=== PATIENT | female | born 2000 | race Caucasian/White ===

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

== ENCOUNTER 2021-05-04 16:23 | Emergency (ER) | payer BC, MEDICAID ==
[2021-05-04] MEDS ORDERED: Sodium Chloride 0.9% 1,000 ML IV ONE ×2 (16:37→17:43)
--- NOTE | 2021-05-04 16:38 | PCM.EKG ---
#1 Interpretation EKG Date: 05/04/21 Time: 16:32 Rhythm: Other (sinus tachy) Rate (Beats/Min): 140 ST-T: Normal
--- NOTE | 2021-05-04 17:14 | CT ---
INDICATION: New onset seizure none TECHNIQUE: CT head without contrast. COMPARISON: None FINDINGS: CSF spaces: Within normal limits for age. Brain parenchyma: The best-white differentiation is normal. No sign of mass, hemorrhage, or midline shift. Skull base and calvarium: Mild mucosal thickening involving the left maxillary sinus floor. The visualized orbits are grossly unremarkable. No skull fractures. IMPRESSION: Unremarkable noncontrast head CT. Please note that all CT scans at this facility use dose modulation, iterative reconstruction, and/or weight-based dosing when appropriate to reduce radiation dose to as low as reasonably achievable. Dictated by Ethan Rodarte MD @ 05/04/2021 5:12:[address] Ethan Rodarte @ May 04 2021 5:12PM
[2021-05-04 17:20] LABS: BLOOD UREA NITROGEN,BUN 7 mg/dL (7.0-18.0); CARBON DIOXIDE,CO2 17.9 mmol/L (21.0-32.0); CHLORIDE,CL 103 mmol/L (98-107); GLUCOSE RANDOM 120 mg/dL (74-106); POTASSIUM,K 4.1 mmol/L (3.5-5.1); SODIUM,NA 137 mmol/L (136-145)
[2021-05-04] MEDS ORDERED: Iopamidol 755 MG/ML 500 ML Multipack Bottle IVPUSH STA (19:09)
--- NOTE | 2021-05-04 19:20 | CR ---
For Patients: As a result of the Century Cures Act, medical imaging exams and procedure reports are released immediately into your electronic medical record. You may view this report before your referring provider. If you have questions, please contact your health care provider. INDICATION: syncope TECHNIQUE: Chest 1 view. COMPARISON: 08/30/19 FINDINGS: Cardiovascular and mediastinum: Heart size and vasculature are normal in caliber and appearance. Mediastinum is within normal limits. Lungs and pleural space: Lungs are clear. No sign of infiltrate or mass. No sign of pleural effusion. No pneumothorax. Bones and soft tissues: No significant findings. IMPRESSION: Unremarkable chest. Dictated by: Ethan Rodarte MD @ 05/04/2021 19:19:09 (Electronically Signed)
--- NOTE | 2021-05-04 20:03 | CT ---
INDICATION: Tachycardia, syncope and right heart strain TECHNIQUE: CT chest PE was acquired with 100 cc Isovue 370 intravenous contrast. COMPARISON: None. FINDINGS: Heart and vasculature: Contrast opacification of the pulmonary arterial tree is adequate. No sign of pulmonary embolism. Heart size is normal. Thoracic aorta and pulmonary artery are normal in caliber. Lungs and pleural: No suspicious nodules or infiltrates. No pleural effusions, pleural thickening, or pneumothorax. Lymph nodes/mediastinum: No mediastinal, hilar, or axillary adenopathy. Chest wall: No masses. Upper abdomen: Normal. Bones: Unremarkable for age. IMPRESSION: Unremarkable chest CTA. No evidence of acute pulmonary embolus. Please note that all CT scans at this facility use dose modulation, iterative reconstruction, and/or weight-based dosing when appropriate to reduce radiation dose to as low as reasonably achievable. Dictated by Reji Monroy MD @ 05/04/2021 8:02:[address] Reji Monroy @ May 04 2021 8:02PM
--- NOTE | 2021-05-04 20:21 | EDM.PDOC ---
ED HPI GENERAL MEDICAL PROBLEM - General Chief Complaint: Cardiovascular Problem Stated Complaint: SIZURE Time Seen by Provider: 05/04/21 16:37 Source of Information: Reports: Patient History Limitations: Reports: No Limitations - History of Present Illness INITIAL COMMENTS - FREE TEXT/NARRATIVE: HISTORY AND PHYSICAL: History of present illness: Patient is a 20-year-old female who presents emergency room today via EMS with concern of possible seizure-like activity. According to EMS, patient's sister was talking to patient when she began mumbling and slumped back into the couch and had a few fasciculations that the sister thought was possible seizure-like activity. Patient states that she feels completely per herself at this time but states that earlier today, she was feeling "shaky "and states that she has not eaten properly today and thought this was associated with it. Patient states that she remembers talking to her sister but then does not have any recollection of the events. Patient states that she has never had a seizure before. Patient states she has a history of bipolar disorder but denies any other health history. Patient has no stated complaints at this time. Patient denies fever, chills, chest pain, shortness of breath, or cough. Denies headache, neck stiff ness, change in vision. Denies nausea, vomiting, abdominal pain, diarrhea, constipation, or dysuria. Has not noted any blood in urine or stool. Patient has been eating and drinking appropriately. Review of systems: As per history of present illness and below otherwise all systems reviewed and negative. Past medical history: As per history of present illness and as reviewed below otherwise noncontributory. Surgical history: As per history of present illness and as reviewed below otherwise noncontributory. Social history: See social history for further information Family history: As per history of present illness and as reviewed below otherwise noncontributory. Physical exam: General: Patient is alert, oriented, and in no acute distress. Patient sitting comfortably on exam table. Tachycardic 140s on exam. Otherwise, vitally stable and reviewed by me. HEENT: Atraumatic, normocephalic, pupils equal and reactive bilaterally, negative for conjunctival pallor or scleral icterus, mucous membranes moist, TMs normal bilaterally, throat clear, neck supple, nontender, trachea midline. No drooling or trismus noted. No meningeal signs. No hot potato voice noted. Lungs: Clear to auscultation, breath sounds equal bilaterally, chest nontender. Heart: Tachycardic. S1S2, regular rate and rhythm without overt murmur Abdomen: Soft, nondistended, nontender. Negative for masses or hepatosplenomegaly. Negative for costovertebral tenderness. Pelvis: Stable nontender. Genitourinary: Deferred. Rectal: Deferred. Skin: Intact, warm, dry. No lesions or rashes noted. Extremities: Atraumatic, negative for cords or calf pain. Neurovascular unremarkable. Neuro: Awake, alert, oriented. Cranial nerves II through XII unremarkable. Cerebellum unremarkable. Motor and sensory unremarkable throughout. Exam nonfocal. Notes: Patient is a 20-year-old, with a history of bipolar disorder otherwise healthy female, who presents emergency room today secondary to possible seizure-like activity versus possible syncopal event that occurred just prior to travel to the emergency room. Upon arrival to the ED, patient is noted to be tachycardic 120s to 140s and variable on exam but otherwise well-appearing and otherwise vitally stable. Patient has no stated complaints at this time. Bedside glucose in the 110s. See Dr. Loza's dictation for specific EKG interpretation. However, sinus tachycardia. Will obtain basic lab work, head CT scan for new onset seizure versus syncope, and cardiac evaluation. CBC mild derangements unremarkable. CMP noted to have a mildly decreased carbon dioxide at 7.9. Glucose is 120. Troponin negative. hCG negative. Prolactin within normal limits. Lactate is elevated at 4.8. Urinalysis shows 30 protein with 0-2 red blood cells, 0-2 white blood cells and 1+ bacteria. Urine drug screen is positive for marijuana. Alcohol negative. CK, MG WNL. Head CT is unremarkable. Chest x-ray shows no acute cardiopulmonary findings. Upon reevaluation of patient, she has received a total of 20 cc/kg fluid bolus and remains tachycardic 115's to 120s on exam. Will get CT angio. Given that patient's heart rate has now slowed down, will obtain repeat EKG and repeat lactate. And CT is unremarkable. No evidence of acute pulmonary embolism. Repeat lactate WNL. Repeat EKG shows sinus tachycardia with a heart rate of 108. However, there appears to be a possible right bundle branch block with inverted T waves in V1, V2, and V3. I did call and speak to Dr. Bernal, cardiology at [facility] in [place] to review EKG and he feels this is a right bundle branch block, which he does feel is non specific but due to possible seizure vs syncope episode recommends admission to the hospital for telemetry and ECHO. I did go and discuss admission to the hospital as recommended by Dr. Bernal, cardiology for observation/telemetry with ECHO but patient declines requesting discharge to home. The patient is clinically not intoxicated, free from distracting pain, appears to have intact insight, judgment and reason and in my medical opinion has the capacity to make decisions. The patient is also not under any duress to leave the hospital. In this scenario, it would be battery to subject a patient to admission, further diagnostics against her will. I have voiced my concern for the patient's health given that a full evaluation and treatment has not occurred. I discussed the need for continued evaluation to determine if their symptoms are caused by a condition that presents risk of or morbidity. Risks including but not limited to , permanent disability, prolonged hospitalization, prolonged illness were discussed. I did offer alternative options of obtaining echo outpatient and did put an order in for this with results to cardiology and patient is agreeable to this plan. Because I have been unable to convince the patient to stay, I have answered all of her questions about the condition and have asked her to return to the ED as soon as possible to complete her evaluation, especially if she has worsening symptoms or they do not improve. I emphasized that leaving AGAINST MEDICAL ADVICE does not preclude her from returning for further evaluation. I asked the patient to return if she were to change her mind about the further evaluation and treatment. I strongly encourage patient to return to this emergency department or any emergency department at any time. Discharge HR remains 110-120, otherwise vitally stable. All risks vs benefits discussed with patient and expresses understanding. Diagnostics: EKG x 2, CBC, CMP, UA, Serum hcg, Prolactin, Lactate, Trop, Head CT, CXR, Ang CT chest, CK, Mg Therapeutics: NS Prescription: Outpatient ECHO Impression: Syncope vs seizure like activity Right bundle branch block Persistent sinus tachycardia Plan: 1. Follow-up with both the neurologist and halal butcher as discussed. You have been provided with an order for ECHO completion with results sent to the Residential Caregiver, Dr. Ly 2. Return to the ED as needed and as discussed. 3. You are leaving the ED against medical advice, however, you are able to return at any time to complete evaluation as discussed. Definitive disposition and diagnosis as appropriate pending reevaluation and review of above. Headache Pain Score (Numeric/FACES): 3 - Related Data Allergies Allergy/AdvReac Type Severity Reaction Status Date / Time latex Allergy Hives Verified 01/10/20 16:14 mold Allergy Hives Verified 01/10/20 16:14 pineapple Allergy Hives Verified 01/10/20 16:14 sulfamethoxazole Allergy Hives Verified 07/18/18 22:02 [From Bactrim] tree and shrub pollen Allergy Hives Verified 01/10/20 16:14 trimethoprim [From Bactrim] Allergy Hives Verified 07/18/18 22:02 Home Meds: Home Meds EPINEPHrine [Epipen] 0.3 mg IM ASDIRECTED PRN #1 pen 01/10/20 [Rx] Albuterol Sulfate [Proair Hfa] 05/04/21 [History] Aripiprazole Lauroxil [Aristada] 05/04/21 [History] medroxyPROGESTERone [Depo-Provera] 05/04/21 [History] metFORMIN [Glucophage] 05/04/21 [History] Past Medical History - Past Health History Medical/Surgical History: Denies Medical/Surgical History Cardiovascular History: Reports: Hypertension Respiratory History: Reports: None Gastrointestinal History: Reports: None Genitourinary History: Reports: None 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 Musculoskeletal History: Reports: None Neurological History: Reports: None Psychiatric History: Reports: Anxiety, Depression, Suicide Attempt, Other (See Below) Other Psychiatric History: Self harm HX Endocrine/Metabolic History: Reports: None Hematologic History: Reports: Anemia Immunologic History: Reports: None Oncologic (Cancer) History: Reports: None Dermatologic History: Reports: None - Infectious Disease History Infectious Disease History: Reports: None - Past Surgical History Head Surgeries/Procedures: Reports: None HEENT Surgical History: Reports: Adenoidectomy, Tonsillectomy Social & Family History - Family History Family Medical History: No Pertinent Family History - Tobacco Use Tobacco Use Status *Q: Never Tobacco User Second Hand Smoke Exposure: No - Caffeine Use Caffeine Use: Reports: None - Recreational Drug Use Recreational Drug Use: No ED ROS GENERAL - Review of Systems Review Of Systems: Comprehensive ROS is negative, except as noted in HPI. ED EXAM, GENERAL - Physical Exam Exam: See Below (see dictation) Course - Vital Signs Last Recorded V/S: Last Vital Signs Temp 98.2 F 05/04/21 18:11 Pulse 110 H 05/04/21 20:38 Resp 17 05/04/21 20:38 BP 127/63 05/04/21 20:38 Pulse Ox 96 05/04/21 20:38 - Orders/Labs/Meds Orders: Active Orders 24 hr Category Date Time Status Echo Comp wo Cont [US] Stat Exams 05/04/21 20:28 Ordered Labs: Laboratory Tests 05/04/21 05/04/21 05/04/21 Range/Units 16:36 16:36 16:36 WBC 10.76 (4.0-11.0) K/uL RBC 5.39 (4.30-5.90) M/uL Hgb 15.7 (12.0-16.0) g/dL Hct 46.9 H (36.0-46.0) % MCV 87.0 (80.0-98.0) fL MCH 29.1 (27.0-32.0) pg MCHC 33.5 (31.0-37.0) g/dL RDW Std Deviation 40.6 (28.0-62.0) fl RDW Coeff of Shannon 13 (11.0-15.0) % Plt Count 390 (150-400) K/uL MPV 10.10 (7.40-12.00) fL Neut % (Auto) 65.9 (48.0-80.0) % Lymph % (Auto) 28.8 (16.0-40.0) % [place] % (Auto) 4.7 (0.0-15.0) % Eos % (Auto) 0.4 (0.0-7.0) % Baso % (Auto) 0.2 (0.0-1.5) % Neut # (Auto) 7.1 H (1.4-5.7) K/uL Lymph # (Auto) 3.1 H (0.6-2.4) K/uL [place] # (Auto) 0.5 (0.0-0.8) K/uL Eos # (Auto) 0.0 (0.0-0.7) K/uL Baso # (Auto) 0.0 (0.0-0.1) K/uL Nucleated RBC % 0.0 /100WBC Nucleated RBCs # 0 K/uL D-Dimer, Quantitative (0.0-0.50) mg/L FEU Sodium 137 (136-145) mmol/L Potassium 4.1 (3.5-5.1) mmol/L Chloride 103 (98-107) mmol/L Carbon Dioxide 17.9 L (21.0-32.0) mmol/L BUN 7 (7.0-18.0) mg/dL Creatinine 1.0 (0.6-1.0) mg/dL Est Cr Clr Drug Dosing 81.42 mL/min Estimated GFR (MDRD) > 60.0 ml/min Glucose 120 H (74-106) mg/dL POC Glucose (70-99) mg/dL Lactic Acid (0.4-2.0) mmol/L Calcium 8.9 (8.5-10.1) mg/dL Magnesium 2.0 (1.8-2.4) mg/dL Total Bilirubin 0.2 (0.2-1.0) mg/dL AST 19 (15-37) IU/L ALT 31 (14-63) IU/L Alkaline Phosphatase 71 (46-116) U/L Creatine Kinase 119 (26-308) U/L Troponin I < 0.050 (0.000-0.056) ng/mL Total Protein 7.7 (6.4-8.2) g/dL Albumin 3.8 (3.4-5.0) g/dL Globulin 3.9 (2.6-4.0) g/dL Albumin/Globulin Ratio 1.0 (0.9-1.6) Prolactin 22.1 ng/mL HCG, Qual NEGATIVE (NEG) Urine Color Urine Appearance Urine pH (5.0-8.0) Ur Specific [place] (1.001-1.035) Urine Protein (NEGATIVE) mg/dL Urine Glucose (UA) (NEGATIVE) mg/dL Urine Ketones (NEGATIVE) mg/dL Urine Occult Blood (NEGATIVE) Urine Nitrite (NEGATIVE) Urine Bilirubin (NEGATIVE) Urine Urobilinogen (<2.0) EU/dL Ur Leukocyte Esterase (NEGATIVE) Urine RBC (0-2/HPF) Urine WBC (0-5/HPF) Ur Epithelial Cells (NONE-FEW) Urine Bacteria (NEGATIVE) Urine Opiates Screen (NEGATIVE) Ur Oxycodone Screen (NEGATIVE) Urine Methadone Screen (NEGATIVE) Ur Barbiturates Screen (NEGATIVE) Ur Phencyclidine Scrn (NEGATIVE) Ur Amphetamine Screen (NEGATIVE) U Methamphetamines Scrn (NEGATIVE) U Benzodiazepines Scrn (NEGATIVE) U Cocaine Metab Screen (NEGATIVE) U Marijuana (THC) Screen (NEGATIVE) Ethyl Alcohol <3 mg/dL 05/04/21 05/04/21 05/04/21 Range/Units 16:36 16:36 17:05 WBC (4.0-11.0) K/uL RBC (4.30-5.90) M/uL Hgb (12.0-16.0) g/dL Hct (36.0-46.0) % MCV (80.0-98.0) fL MCH (27.0-32.0) pg MCHC (31.0-37.0) g/dL RDW Std Deviation (28.0-62.0) fl RDW Coeff of Shannon (11.0-15.0) % Plt Count (150-400) K/uL MPV (7.40-12.00) fL Neut % (Auto) (48.0-80.0) % Lymph % (Auto) (16.0-40.0) % [place] % (Auto) (0.0-15.0) % Eos % (Auto) (0.0-7.0) % Baso % (Auto) (0.0-1.5) % Neut # (Auto) (1.4-5.7) K/uL Lymph # (Auto) (0.6-2.4) K/uL [place] # (Auto) (0.0-0.8) K/uL Eos # (Auto) (0.0-0.7) K/uL Baso # (Auto) (0.0-0.1) K/uL Nucleated RBC % /100WBC Nucleated RBCs # K/uL D-Dimer, Quantitative 0.68 H (0.0-0.50) mg/L FEU Sodium (136-145) mmol/L Potassium (3.5-5.1) mmol/L Chloride (98-107) mmol/L Carbon Dioxide (21.0-32.0) mmol/L BUN (7.0-18.0) mg/dL Creatinine (0.6-1.0) mg/dL Est Cr Clr Drug Dosing mL/min Estimated GFR (MDRD) ml/min Glucose (74-106) mg/dL POC Glucose 112 H (70-99) mg/dL Lactic Acid 4.8 H* (0.4-2.0) mmol/L Calcium (8.5-10.1) mg/dL Magnesium (1.8-2.4) mg/dL Total Bilirubin (0.2-1.0) mg/dL AST (15-37) IU/L ALT (14-63) IU/L Alkaline Phosphatase (46-116) U/L Creatine Kinase (26-308) U/L Troponin I (0.000-0.056) ng/mL Total Protein (6.4-8.2) g/dL Albumin (3.4-5.0) g/dL Globulin (2.6-4.0) g/dL Albumin/Globulin Ratio (0.9-1.6) Prolactin ng/mL HCG, Qual (NEG) Urine Color Urine Appearance Urine pH (5.0-8.0) Ur Specific [place] (1.001-1.035) Urine Protein (NEGATIVE) mg/dL Urine Glucose (UA) (NEGATIVE) mg/dL Urine Ketones (NEGATIVE) mg/dL Urine Occult Blood (NEGATIVE) Urine Nitrite (NEGATIVE) Urine Bilirubin (NEGATIVE) Urine Urobilinogen (<2.0) EU/dL Ur Leukocyte Esterase (NEGATIVE) Urine RBC (0-2/HPF) Urine WBC (0-5/HPF) Ur Epithelial Cells (NONE-FEW) Urine Bacteria (NEGATIVE) Urine Opiates Screen (NEGATIVE) Ur Oxycodone Screen (NEGATIVE) Urine Methadone Screen (NEGATIVE) Ur Barbiturates Screen (NEGATIVE) Ur Phencyclidine Scrn (NEGATIVE) Ur Amphetamine Screen (NEGATIVE) U Methamphetamines Scrn (NEGATIVE) U Benzodiazepines Scrn (NEGATIVE) U Cocaine Metab Screen (NEGATIVE) U Marijuana (THC) Screen (NEGATIVE) Ethyl Alcohol mg/dL 05/04/21 05/04/21 05/04/21 Range/Units 17:42 17:42 19:38 WBC (4.0-11.0) K/uL RBC (4.30-5.90) M/uL Hgb (12.0-16.0) g/dL Hct (36.0-46.0) % MCV (80.0-98.0) fL MCH (27.0-32.0) pg MCHC (31.0-37.0) g/dL RDW Std Deviation (28.0-62.0) fl RDW Coeff of Shannon (11.0-15.0) % Plt Count (150-400) K/uL MPV (7.40-12.00) fL Neut % (Auto) (48.0-80.0) % Lymph % (Auto) (16.0-40.0) % [place] % (Auto) (0.0-15.0) % Eos % (Auto) (0.0-7.0) % Baso % (Auto) (0.0-1.5) % Neut # (Auto) (1.4-5.7) K/uL Lymph # (Auto) (0.6-2.4) K/uL [place] # (Auto) (0.0-0.8) K/uL Eos # (Auto) (0.0-0.7) K/uL Baso # (Auto) (0.0-0.1) K/uL Nucleated RBC % /100WBC Nucleated RBCs # K/uL D-Dimer, Quantitative (0.0-0.50) mg/L FEU Sodium (136-145) mmol/L Potassium (3.5-5.1) mmol/L Chloride (98-107) mmol/L Carbon Dioxide (21.0-32.0) mmol/L BUN (7.0-18.0) mg/dL Creatinine (0.6-1.0) mg/dL Est Cr Clr Drug Dosing mL/min Estimated GFR (MDRD) ml/min Glucose (74-106) mg/dL POC Glucose (70-99) mg/dL Lactic Acid 1.9 (0.4-2.0) mmol/L Calcium (8.5-10.1) mg/dL Magnesium (1.8-2.4) mg/dL Total Bilirubin (0.2-1.0) mg/dL AST (15-37) IU/L ALT (14-63) IU/L Alkaline Phosphatase (46-116) U/L Creatine Kinase (26-308) U/L Troponin I (0.000-0.056) ng/mL Total Protein (6.4-8.2) g/dL Albumin (3.4-5.0) g/dL Globulin (2.6-4.0) g/dL Albumin/Globulin Ratio (0.9-1.6) Prolactin ng/mL HCG, Qual (NEG) Urine Color YELLOW Urine Appearance CLEAR Urine pH 6.0 (5.0-8.0) Ur Specific [place] 1.025 (1.001-1.035) Urine Protein 30 H (NEGATIVE) mg/dL Urine Glucose (UA) NEGATIVE (NEGATIVE) mg/dL Urine Ketones NEGATIVE (NEGATIVE) mg/dL Urine Occult Blood TRACE-INTACT H (NEGATIVE) Urine Nitrite NEGATIVE (NEGATIVE) Urine Bilirubin NEGATIVE (NEGATIVE) Urine Urobilinogen 0.2 (<2.0) EU/dL Ur Leukocyte Esterase NEGATIVE (NEGATIVE) Urine RBC 0-2 (0-2/HPF) Urine WBC 0-2 (0-5/HPF) Ur Epithelial Cells FEW (NONE-FEW) Urine Bacteria 1+ H (NEGATIVE) Urine Opiates Screen NEGATIVE (NEGATIVE) Ur Oxycodone Screen NEGATIVE (NEGATIVE) Urine Methadone Screen NEGATIVE (NEGATIVE) Ur Barbiturates Screen NEGATIVE (NEGATIVE) Ur Phencyclidine Scrn NEGATIVE (NEGATIVE) Ur Amphetamine Screen NEGATIVE (NEGATIVE) U Methamphetamines Scrn NEGATIVE (NEGATIVE) U Benzodiazepines Scrn NEGATIVE (NEGATIVE) U Cocaine Metab Screen NEGATIVE (NEGATIVE) U Marijuana (THC) Screen POSITIVE (NEGATIVE) Ethyl Alcohol mg/dL Meds: Medications Discontinued Medications Generic Name Dose Route Start Last Admin Trade Name Cristiq PRN Reason Stop Dose Admin Sodium Chloride 1,000 mls @ 999 mls/hr 05/04/21 16:37 05/04/21 17:02 Normal Saline IV 05/04/21 17:37 999 mls/hr BOLUS ONE Administration Sodium Chloride 1,000 mls @ 999 mls/hr 05/04/21 17:43 05/04/21 17:53 Normal Saline IV 05/04/21 18:43 999 mls/hr STAT ONE Administration Iopamidol 100 ml 05/04/21 19:09 05/04/21 19:10 Iopamidol 755 Mg/Ml 500 Ml Multipack Bottle IVPUSH 05/04/21 19:10 100 ml ONETIME STA Administration Departure - Departure Time of Disposition: 20:19 Disposition: Against Medical Advice 07 Clinical Impression: Seizure-like activity, Right bundle branch block, Sinus tachycardia, Left against medical advice Syncope Qualifiers: Syncope type: unspecified Qualified Code(s): R55 - Syncope and collapse - Discharge Information Referrals: PCP,None [Primary Care Provider] - Forms: ED Department Discharge Additional Instructions: The following information is given to patients seen in the emergency department who are being discharged to home. This information is to outline your options for follow-up care. We provide all patients seen in our emergency department with a follow-up referral. The need for follow-up, as well as the timing and circumstances, are variable depending upon the specifics of your emergency department visit. If you don't have a primary care physician on staff, we will provide you with a referral. We always advise you to contact your personal physician following an emergency department visit to inform them of the circumstance of the visit and for follow-up with them and/or the need for any referrals to a consulting specialist. The emergency department will also refer you to a specialist when appropriate. This referral assures that you have the opportunity for follow-up care with a specialist. All of these measure are taken in an effort to provide you with optimal care, which includes your follow-up. Under all circumstances we always encourage you to contact your private physician who remains a resource for coordinating your care. When calling for follow-up care, please make the office aware that this follow-up is from your recent emergency room visit. If for any reason you are refused follow-up, please contact the [facility] Emergency Department at and asked to speak to the emergency department charge nurse. [facility] Primary Care / Cardiology [address] [place] [id number] [address] [facility] - Neurology Professional Building [address] [place] [address], [address] [place] [address] 1. Follow-up with both the neurologist and halal butcher as discussed. You have been provided with an order for ECHO completion with results sent to the Residential Caregiver, Dr. Ly 2. Return to the ED as needed and as discussed. 3. You are leaving the ED against medical advice, however, you are able to return at any time to complete evaluation as discussed. Sepsis Event Note (ED) - Evaluation Sepsis Screening Result: No Definite Risk - Focused Exam Vital Signs: Vital Signs Temp Pulse Resp BP Pulse Ox 05/04/21 20:38 110 H 17 127/63 96 05/04/21 18:11 98.2 F 56 L 18 136/80 98 05/04/21 17:24 97.8 F 108 H 18 119/80 98 05/04/21 16:27 97.3 F 96 20 144/74 H 96 - My Orders Last 24 Hours: My Active Orders 05/04/21 20:28 Echo Comp wo Cont [US] Stat - Assessment/Plan Last 24 Hours: My Active Orders 05/04/21 20:28 Echo Comp wo Cont [US] Stat
[2021-05-04 20:40] VITALS: BP 127/63; PULSE 110
--- NOTE | 2021-05-04 21:54 | PCM.SN.2 ---
- Free Text/Narrative Note: EKG done at 1806 is a repeat. Sinus tachycardia heart rate 108 AL 143 QT duration 448 axis 97. There is an incomplete right bundle branch block and a left posterior fascicular block. ST changes consistent with early repole. Compared to the EKG done at 1632 today no change on the right impression no acute injury
== END 2021-05-04 20:41 | disposition left against medical advice (07) ==
LOC: MW.ED 16:23
DX: R56.9 Unspecified convulsions (principal); R55 Syncope and collapse; R00.0 Tachycardia, unspecified; I45.10 Unspecified right bundle-branch block; Z53.8 Procedure and treatment not carried out for other reasons; I10 Essential (primary) hypertension; Z91.018 Allergy to other foods; Z91.040 Latex allergy status; Z88.1 Allergy status to other antibiotic agents; Z91.09 Other allergy status, other than to drugs and biological substances; Z79.899 Other long term (current) drug therapy
CPT/HCPCS: 36415; 70450; 71045; 71275; 80053; 80305; 80307; 81001; 82550; 82947; 83605; 83735; 84146; 84484; 84703; 85025; 85379; 93005; 99285; J7030; Q9967

== ENCOUNTER 2022-08-27 12:54 | Emergency (ER) | payer BC, MEDICAID ==
[2022-08-27 13:21] VITALS: BP 128/87; PULSE 105
== END 2022-08-27 14:47 | disposition home or self-care (01) ==
LOC: MW.ED 12:54
DX: T59.91XA Toxic effect of unspecified gases, fumes and vapors, accidental (unintentional), initial encounter (principal); I10 Essential (primary) hypertension; Z88.1 Allergy status to other antibiotic agents; Z91.040 Latex allergy status; Z91.018 Allergy to other foods; Z88.8 Allergy status to other drugs, medicaments and biological substances
CPT/HCPCS: 71046; 71046-26; 99283

== ENCOUNTER 2022-10-26 11:12 | Emergency (ER) | payer BC, MEDICAID ==
[2022-10-26 12:35] VITALS: BP 149/72; PULSE 86
[2022-10-26] MEDS ORDERED: traMADol 50 MG Tab PO ONE (13:06)
== END 2022-10-26 15:32 | disposition left against medical advice (07) ==
LOC: MW.ED 11:12
DX: M54.6 Pain in thoracic spine (principal); F41.9 Anxiety disorder, unspecified; F32.A Depression, unspecified; D64.9 Anemia, unspecified; Z88.2 Allergy status to sulfonamides; Z91.018 Allergy to other foods; Z88.8 Allergy status to other drugs, medicaments and biological substances; Z91.040 Latex allergy status; Z88.1 Allergy status to other antibiotic agents
CPT/HCPCS: 36415; 72125; 72128; 72131; 84703; 99284; A9270

== ENCOUNTER 2022-11-01 16:23 | Emergency (ER) | payer BC, MEDICAID ==
[2022-11-01] MEDS ORDERED: Sodium Chloride 0.9% 10 ML Syringe FLUSH PRN (16:32)
[2022-11-01] MEDS ORDERED: Sodium Chloride 0.9% 2.5 ML Syringe FLUSH PRN (16:32)
[2022-11-01] MEDS ORDERED: Sodium Chloride 0.9% 500 ML IV SCH ×2 (16:45→17:00)
[2022-11-01 16:53] VITALS: BP 150/83; PULSE 138
[2022-11-01] MEDS ORDERED: LORazepam 2 MG/ML SDV IVPUSH ONE (16:59)
[2022-11-01 17:10] LABS: BLOOD UREA NITROGEN,BUN 6 mg/dL (7.0-18.0); CARBON DIOXIDE,CO2 18.2 mmol/L (21.0-32.0); CHLORIDE,CL 100 mmol/L (98-107); GLUCOSE RANDOM 115 mg/dL (74-106); POTASSIUM,K 3.7 mmol/L (3.5-5.1); SODIUM,NA 136 mmol/L (136-145)
[2022-11-01 17:42] LABS: ESTIMATED GFR 94 mL/min (>60)
[2022-11-01] MEDS ORDERED: Sodium Chloride 0.9% 1,000 ML IV ONE (17:43)
== END 2022-11-01 19:07 | disposition left against medical advice (07) ==
LOC: MW.ED 16:23
DX: R56.9 Unspecified convulsions (principal); I10 Essential (primary) hypertension; I45.10 Unspecified right bundle-branch block; Z79.899 Other long term (current) drug therapy; Z91.040 Latex allergy status; Z91.048 Other nonmedicinal substance allergy status; Z91.018 Allergy to other foods; Z88.2 Allergy status to sulfonamides
CPT/HCPCS: 36415; 80053; 80183; 80307; 83605; 84443; 84703; 85025; 85379; 93005; 96361; 96374; 99285; J2060; J3490; J7040

== ENCOUNTER 2022-12-20 16:11 | Emergency (ER) | payer BC, MEDICAID ==
[2022-12-20] MEDS ORDERED: Sodium Chloride 0.9% 1,000 ML IV ONE (16:15)
[2022-12-20 17:18] LABS: CARBON DIOXIDE,CO2 22.5 mmol/L (21.0-32.0); POTASSIUM,K 3.5 mmol/L (3.5-5.1)
[2022-12-20 18:17] VITALS: BP 131/59; PULSE 88
== END 2022-12-20 18:13 | disposition home or self-care (01) ==
LOC: MW.ED 16:11
DX: Z71.1 Person with feared health complaint in whom no diagnosis is made (principal); I10 Essential (primary) hypertension; Z91.040 Latex allergy status; Z88.1 Allergy status to other antibiotic agents; Z91.048 Other nonmedicinal substance allergy status; Z91.018 Allergy to other foods
CPT/HCPCS: 36415; 80053; 81001; 85025; 96360; 99284; J7030

== ENCOUNTER 2023-03-17 22:57 | Emergency (ER) | payer BC, MEDICAID ==
[2023-03-17] MEDS ORDERED: Famotidine 20 MG/2 ML SDV IVPUSH ONE (23:17)
[2023-03-17] MEDS ORDERED: diphenhydrAMINE 50 MG/ML SDV IVPUSH ONE (23:17)
[2023-03-17] MEDS ORDERED: EPINEPHrine 1 MG/1 ML Amp IM ONE (23:17)
[2023-03-17] MEDS ORDERED: Sodium Chloride 0.9% 10 ML Syringe FLUSH PRN (23:17)
[2023-03-17] MEDS ORDERED: Sodium Chloride 0.9% 1,000 ML IV ONE (23:17)
[2023-03-17] MEDS ORDERED: Sodium Chloride 0.9% 2.5 ML Syringe FLUSH PRN (23:17)
[2023-03-18 00:23] LABS: CALCIUM 9.5 mg/dL (8.5-10.1); CARBON DIOXIDE,CO2 26.4 mmol/L (21.0-32.0); CREATININE 0.8 mg/dL (0.6-1.0); EST CRCL DRUG DOSING (CG) 100.1 mL/min
[2023-03-18 02:09] VITALS: BP 134/72; PULSE 96
== END 2023-03-18 01:30 | disposition home or self-care (01) ==
LOC: MW.ED 22:57
DX: T78.3XXA Angioneurotic edema, initial encounter (principal); Z91.040 Latex allergy status; Z91.048 Other nonmedicinal substance allergy status; Z91.018 Allergy to other foods; Z88.2 Allergy status to sulfonamides; Z79.899 Other long term (current) drug therapy
CPT/HCPCS: 36415; 80048; 81025; 96361; 96372; 96374; 96375; 99284; J0171; J1200; J3490; J7030

== ENCOUNTER 2023-03-24 18:52 | Emergency (ER) | payer BC, MEDICAID ==
[2023-03-24] MEDS ORDERED: Lactated Ringers 1,000 ML IV ONE (19:02)
[2023-03-24] MEDS ORDERED: Metoprolol Tartrate 5 MG/5 ML SDV IVPUSH ONE (19:08)
[2023-03-24 19:15] VITALS: BP 138/71
[2023-03-24 20:37] LABS: BASOPHILS PERCENT AUTO 0.2 % (0.0-1.5); EOSINOPHILS ABSOLUTE AUTO 0.1 K/uL (0.0-0.7); EOSINOPHILS PERCENT AUTO 0.4 % (0.0-7.0); HEMATOCRIT 40.8 % (36.0-46.0); HEMOGLOBIN 13.5 g/dL (12.0-16.0); LYMPHOCYTES ABSOLUTE AUTO 1.9 K/uL (0.6-2.4); LYMPHOCYTES PERCENT AUTO 16.6 % (16.0-40.0); MEAN CORPUSCULAR HEMOGLOBIN 28.9 pg (27.0-32.0); MEAN CORPUSCULAR HGB CONC 33.1 g/dL (31.0-37.0); MEAN CORPUSCULAR VOLUME 87.4 fL (80.0-98.0); MONOCYTES PERCENT AUTO 9.1 % (0.0-15.0); NEUTROPHILS ABSOLUTE AUTO 8.3 K/uL (1.4-5.7); NEUTROPHILS PERCENT AUTO 73.7 % (48.0-80.0); PLATELET COUNT,PLT 334 K/uL (150-400); RED BLOOD CELL COUNT 4.67 M/uL (4.30-5.90); WHITE BLOOD CELL COUNT,WBC 11.23 K/uL (4.0-11.0)
[2023-03-24 21:03] LABS: LACTIC ACID 1.4 mmol/L (0.4-2.0)
[2023-03-24 21:08] LABS: ALANINE AMINOTRANSFERASE,ALT 29 IU/L (14-63); ALBUMIN 3.3 g/dL (3.4-5.0); ALKALINE PHOSPHATASE 60 U/L (46-116); ASPARTATE AMNIOTRANSFERASE,AST 13 IU/L (15-37); BILIRUBIN TOTAL 0.2 mg/dL (0.2-1.0); BLOOD UREA NITROGEN,BUN 9 mg/dL (7.0-18.0); CALCIUM 8.5 mg/dL (8.5-10.1); CARBON DIOXIDE,CO2 26.4 mmol/L (21.0-32.0); CHLORIDE,CL 103 mmol/L (98-107); CREATININE 0.7 mg/dL (0.6-1.0); GLUCOSE RANDOM 89 mg/dL (74-106); POTASSIUM,K 4.1 mmol/L (3.5-5.1); PROTEIN TOTAL,TP 6.7 g/dL (6.4-8.2); SODIUM,NA 135 mmol/L (136-145); TSH ULTRASENSITIVE 1.48 uIU/mL (0.36-3.74)
[2023-03-24 21:09] LABS: ESTIMATED GFR 126 mL/min (>60)
[2023-03-24 21:32] VITALS: PULSE 101
== END 2023-03-24 21:32 | disposition home or self-care (01) ==
LOC: MW.ED 18:52
DX: G40.909 Epilepsy, unspecified, not intractable, without status epilepticus (principal); Z91.040 Latex allergy status; Z91.048 Other nonmedicinal substance allergy status; Z91.018 Allergy to other foods; Z88.2 Allergy status to sulfonamides
CPT/HCPCS: 36415; 80053; 83605; 83735; 84443; 84703; 85025; 93005; 96360; 99284; J7120; 99283

== ENCOUNTER 2023-05-13 11:33 | Emergency (ER) | payer BC, MEDICAID ==
[2023-05-13] MEDS ORDERED: Sodium Chloride 0.9% 2.5 ML Syringe FLUSH PRN (12:13)
[2023-05-13] MEDS ORDERED: Sodium Chloride 0.9% 10 ML Syringe FLUSH PRN (12:13)
[2023-05-13] MEDS ORDERED: Sodium Chloride 0.9% 1,000 ML IV STA (12:14)
[2023-05-13 12:55] LABS: APPEARANCE,URINE SLT CLOUDY; BILIRUBIN,URINE NEGATIVE (NEGATIVE); COLOR,URINE YELLOW; GLUCOSE,URINE NEGATIVE (NEGATIVE); KETONES,URINE NEGATIVE (NEGATIVE); LEUKOCYTE ESTERASE,URINE TRACE (NEGATIVE); NITRITE,URINE NEGATIVE (NEGATIVE); OCCULT BLOOD,URINE NEGATIVE (NEGATIVE); PROTEIN,URINE TRACE mg/dL (NEGATIVE); UROBILINOGEN,URINE 0.2 EU/dL (<2.0)
[2023-05-13 13:10] LABS: ALBUMIN 3.8 g/dL (3.4-5.0); BASOPHILS PERCENT AUTO 0.5 % (0.0-1.5); BILIRUBIN TOTAL 0.3 mg/dL (0.2-1.0); CARBON DIOXIDE,CO2 25.6 mmol/L (21.0-32.0); CREATININE 0.8 mg/dL (0.6-1.0); EOSINOPHILS ABSOLUTE AUTO 0.1 K/uL (0.0-0.7); EOSINOPHILS PERCENT AUTO 1.1 % (0.0-7.0); EST CRCL DRUG DOSING (CG) 104.14 mL/min; HEMATOCRIT 43.7 % (36.0-46.0); HEMOGLOBIN 14.7 g/dL (12.0-16.0); LYMPHOCYTES ABSOLUTE AUTO 1.4 K/uL (0.6-2.4); LYMPHOCYTES PERCENT AUTO 24.9 % (16.0-40.0); MEAN CORPUSCULAR HEMOGLOBIN 28.9 pg (27.0-32.0); MEAN CORPUSCULAR HGB CONC 33.6 g/dL (31.0-37.0); MONOCYTES ABSOLUTE AUTO 0.4 K/uL (0.0-0.8); MONOCYTES PERCENT AUTO 6.5 % (0.0-15.0); NEUTROPHILS ABSOLUTE AUTO 3.7 K/uL (1.4-5.7); NRBC ABSOLUTE 0 K/uL; PLATELET COUNT,PLT 343 K/uL (150-400); POTASSIUM,K 3.7 mmol/L (3.5-5.1); PROTEIN TOTAL,TP 7.5 g/dL (6.4-8.2); RED BLOOD CELL COUNT 5.08 M/uL (4.30-5.90); WHITE BLOOD CELL COUNT,WBC 5.54 K/uL (4.0-11.0)
[2023-05-13 13:11] LABS: EPITHELIAL CELLS,URINE MODERATE (NONE-FEW); RBC,URINE 0-2 (0-2/HPF); SQUAMOUS EPITHELIAL CELLS,UR MODERATE; WBC,URINE 0-5 (0-5/HPF)
[2023-05-13 13:12] LABS: BACTERIA,URINE MODERATE (NEGATIVE); HYALINE CASTS,URINE OCCASIONAL (0-2/LPF); MUCUS,URINE MODERATE (NONE-MOD)
[2023-05-13 14:33] VITALS: BP 149/86; PULSE 81
== END 2023-05-13 14:32 | disposition home or self-care (01) ==
LOC: MW.ED 11:33
DX: Z71.1 Person with feared health complaint in whom no diagnosis is made (principal); Z86.69 Personal history of other diseases of the nervous system and sense organs; J45.909 Unspecified asthma, uncomplicated; F17.210 Nicotine dependence, cigarettes, uncomplicated; Z88.8 Allergy status to other drugs, medicaments and biological substances; Z91.040 Latex allergy status; Z91.018 Allergy to other foods; Z88.2 Allergy status to sulfonamides; Z79.899 Other long term (current) drug therapy
CPT/HCPCS: 36415; 80053; 81001; 81025; 83735; 85025; 87086; 96360; 99284; J3490; J7030; 99283

== ENCOUNTER 2023-06-02 13:39 | Emergency (ER) | payer BC, MEDICAID, OTHER ==
[2023-06-02 16:03] VITALS: BP 149/76; PULSE 90
== END 2023-06-02 15:55 | disposition home or self-care (01) ==
LOC: MW.ED 13:39
DX: S97.81XA Crushing injury of right foot, initial encounter (principal); J45.909 Unspecified asthma, uncomplicated; Z79.899 Other long term (current) drug therapy; Z88.8 Allergy status to other drugs, medicaments and biological substances; Z91.048 Other nonmedicinal substance allergy status; Z91.018 Allergy to other foods; Z91.040 Latex allergy status; W20.8XXA Other cause of strike by thrown, projected or falling object, initial encounter; Y92.59 Other trade areas as the place of occurrence of the external cause; Y99.0 Civilian activity done for income or pay
CPT/HCPCS: 73620-26-RT; 73620-RT; 99283

== ENCOUNTER 2023-09-18 20:03 | Emergency (ER) | payer BC, MEDICAID ==
[2023-09-18] MEDS ORDERED: Cefdinir 300 MG Cap PO ONE (20:31)
[2023-09-18 20:40] VITALS: BP 122/81; PULSE 81
== END 2023-09-18 20:40 | disposition home or self-care (01) ==
LOC: MW.ED 20:03
DX: L03.113 Cellulitis of right upper limb (principal); Z79.899 Other long term (current) drug therapy; Z88.2 Allergy status to sulfonamides; Z91.048 Other nonmedicinal substance allergy status; Z91.040 Latex allergy status; Z91.018 Allergy to other foods; Z88.8 Allergy status to other drugs, medicaments and biological substances; Z88.7 Allergy status to serum and vaccine; Z88.6 Allergy status to analgesic agent
CPT/HCPCS: 99283; A9270

== ENCOUNTER 2023-12-14 09:42 | Day surgery (SDC) | payer OTHER, BC, MEDICAID ==
[~2023-12-14 09:42] MED LIST: Sodium Chloride 0.9% 10 ML Syringe FLUSH PRN; Sodium Chloride 0.9% 2.5 ML Syringe FLUSH PRN; Sodium Chloride 0.9% 20 ML SDV IV PRN
[2023-12-14] MEDS ORDERED: propofoL 50 ML ONE (09:46)
[2023-12-14] MEDS ORDERED: dexmedeTOMIDine HCl 200 MCG/2 ML SDV ONE (09:48)
[2023-12-14] MEDS: Lactated Ringers 1,000 ML IV SCH (11:15)
[2023-12-14 12:35] VITALS: BP 96/46; PULSE 76
== END 2023-12-14 12:45 | disposition home or self-care (01) ==
LOC: MW.SDS 09:42
PROVIDERS: ATTEND Surgery
DX: K29.50 Unspecified chronic gastritis without bleeding (principal); K59.00 Constipation, unspecified; F39 Unspecified mood [affective] disorder; K76.0 Fatty (change of) liver, not elsewhere classified; K21.9 Gastro-esophageal reflux disease without esophagitis; M25.50 Pain in unspecified joint; Z88.6 Allergy status to analgesic agent; Z79.899 Other long term (current) drug therapy; Z87.891 Personal history of nicotine dependence
CPT/HCPCS: 43239; 81025; J2704; J7120; 00731; J3490

== ENCOUNTER 2024-01-19 14:32 | Emergency (ER) | payer OTHER, MEDICAID ==
[2024-01-19 18:18] LABS: BASOPHILS ABSOLUTE AUTO 0.03 K/uL (0.00-0.20); BASOPHILS PERCENT AUTO 0.3 % (0.0-1.0); EOSINOPHILS ABSOLUTE AUTO 0.16 K/uL (0.00-0.45); EOSINOPHILS PERCENT AUTO 1.8 % (0.0-6.0); HEMATOCRIT 42.1 % (37.0-47.0); IMMATURE GRAN ABSOLUTE AUTO 0.02 K/uL (0.00-0.05); IMMATURE GRAN PERCENT AUTO 0.2 % (0.0-0.4); LYMPHOCYTES ABSOLUTE AUTO 3.53 K/uL (1.00-4.80); LYMPHOCYTES PERCENT AUTO 39.5 % (24.0-44.0); MEAN CORPUSCULAR HEMOGLOBIN 28.2 pg (28.0-32.0); MEAN CORPUSCULAR HGB CONC 33.3 g/dL (32.0-36.0); MEAN CORPUSCULAR VOLUME 84.7 fL (83.0-99.0); MEAN PLATELET VOLUME 9.5 fL (9.4-12.3); MONOCYTES ABSOLUTE AUTO 0.93 K/uL (0.00-0.80); MONOCYTES PERCENT AUTO 10.4 % (0.0-8.0); NEUTROPHILS ABSOLUTE AUTO 4.26 K/uL (1.80-7.70); NEUTROPHILS PERCENT AUTO 47.8 % (41.0-71.0); PLATELET COUNT,PLT 400 K/uL (150-400); RED BLOOD CELL COUNT 4.97 M/uL (4.10-5.30); WHITE BLOOD CELL COUNT,WBC 8.93 K/uL (3.9-11.3)
[2024-01-19 18:43] LABS: A/G RATIO 1.1 (0.9-1.6); ALBUMIN 3.8 g/dL (3.4-5.0); BILIRUBIN TOTAL 0.2 mg/dL (0.2-1.0); CALCIUM 9.3 mg/dL (8.5-10.1); CREATININE 0.8 mg/dL (0.6-1.0); EST CRCL DRUG DOSING (CG) 103.26 mL/min; POTASSIUM,K 3.9 mmol/L (3.5-5.1); PROTEIN TOTAL,TP 7.4 g/dL (6.4-8.2)
[2024-01-19 19:14] VITALS: BP 149/81; PULSE 87
== END 2024-01-19 19:13 | disposition home or self-care (01) ==
LOC: MW.ED 14:32
DX: G35 Multiple sclerosis (principal); Z75.8 Other problems related to medical facilities and other health care; Z88.8 Allergy status to other drugs, medicaments and biological substances; Z88.2 Allergy status to sulfonamides; Z91.048 Other nonmedicinal substance allergy status; Z91.018 Allergy to other foods; Z91.040 Latex allergy status; Z79.899 Other long term (current) drug therapy
CPT/HCPCS: 36415; 80053; 85025; 96365; 99283; J2930; J7050

== ENCOUNTER 2024-01-20 17:25 | Emergency (ER) | payer OTHER, MEDICAID ==
[2024-01-20] MEDS ORDERED: Sodium Chloride 0.9% 250 ML IV ONE (17:26)
[2024-01-20] MEDS: methylPREDNISolone Sodium Succinate 125 MG/2 ML SDV IV ONE (18:33)
[2024-01-20 19:47] VITALS: BP 137/95; PULSE 96
== END 2024-01-20 19:42 | disposition home or self-care (01) ==
LOC: MW.ED 17:25
DX: Z76.0 Encounter for issue of repeat prescription (principal); G35 Multiple sclerosis; Z79.899 Other long term (current) drug therapy; Z91.040 Latex allergy status; Z88.2 Allergy status to sulfonamides; Z88.8 Allergy status to other drugs, medicaments and biological substances; Z91.048 Other nonmedicinal substance allergy status
CPT/HCPCS: 96365; 99281; J2930; J7050; 99283

== ENCOUNTER 2024-01-21 18:03 | Emergency (ER) | payer OTHER, MEDICAID ==
[2024-01-21] MEDS: methylPREDNISolone Sodium Succinate 125 MG/2 ML SDV IVPUSH ONE (18:26)
[2024-01-21 19:53] VITALS: BP 157/85; PULSE 89
== END 2024-01-21 19:52 | disposition home or self-care (01) ==
LOC: MW.ED 18:03
DX: Z02.89 Encounter for other administrative examinations (principal); G35 Multiple sclerosis; Z79.899 Other long term (current) drug therapy; Z91.048 Other nonmedicinal substance allergy status; Z88.8 Allergy status to other drugs, medicaments and biological substances; Z88.2 Allergy status to sulfonamides; Z91.018 Allergy to other foods; Z91.040 Latex allergy status; Z75.8 Other problems related to medical facilities and other health care
CPT/HCPCS: 96365; 99281; J2930; J7050; 99284

== ENCOUNTER 2024-02-09 15:16 | Emergency (ER) | payer BC, MEDICAID, OTHER ==
[2024-02-09] MEDS: Sodium Chloride 0.9% 2.5 ML Syringe FLUSH PRN (16:45)
[2024-02-09] MEDS: Sodium Chloride 0.9% 1,000 ML IV ONE (16:45)
[2024-02-09] MEDS: Sodium Chloride 0.9% 10 ML Syringe FLUSH PRN (16:46)
[2024-02-09 17:06] LABS: BASOPHILS ABSOLUTE AUTO 0.05 K/uL (0.00-0.20); BASOPHILS PERCENT AUTO 0.5 % (0.0-1.0); EOSINOPHILS ABSOLUTE AUTO 0.03 K/uL (0.00-0.45); EOSINOPHILS PERCENT AUTO 0.3 % (0.0-6.0); HEMATOCRIT 41.3 % (37.0-47.0); HEMOGLOBIN 13.8 g/dL (12.0-16.0); IMMATURE GRAN ABSOLUTE AUTO 0.02 K/uL (0.00-0.05); IMMATURE GRAN PERCENT AUTO 0.2 % (0.0-0.4); LYMPHOCYTES ABSOLUTE AUTO 1.24 K/uL (1.00-4.80); LYMPHOCYTES PERCENT AUTO 12.2 % (24.0-44.0); MEAN CORPUSCULAR HGB CONC 33.4 g/dL (32.0-36.0); MEAN CORPUSCULAR VOLUME 83.9 fL (83.0-99.0); MEAN PLATELET VOLUME 9.6 fL (9.4-12.3); MONOCYTES PERCENT AUTO 5.9 % (0.0-8.0); NEUTROPHILS ABSOLUTE AUTO 8.25 K/uL (1.80-7.70); NEUTROPHILS PERCENT AUTO 80.9 % (41.0-71.0); PLATELET COUNT,PLT 339 K/uL (150-400); RED BLOOD CELL COUNT 4.92 M/uL (4.10-5.30); WHITE BLOOD CELL COUNT,WBC 10.19 K/uL (3.9-11.3)
[2024-02-09 17:38] LABS: A/G RATIO 1.1 (0.9-1.6); ALANINE AMINOTRANSFERASE,ALT 45 IU/L (14-63); ALBUMIN 3.6 g/dL (3.4-5.0); ALKALINE PHOSPHATASE 72 U/L (46-116); ASPARTATE AMNIOTRANSFERASE,AST 21 IU/L (15-37); BILIRUBIN TOTAL 0.4 mg/dL (0.2-1.0); BLOOD UREA NITROGEN,BUN 9 mg/dL (7.0-18.0); CALCIUM 9.3 mg/dL (8.5-10.1); CARBON DIOXIDE,CO2 25.9 mmol/L (21.0-32.0); CHLORIDE,CL 104 mmol/L (98-107); CREATININE 0.7 mg/dL (0.6-1.0); EST CRCL DRUG DOSING (CG) 118.01 mL/min; ESTIMATED GFR 125 mL/min (>60); ETHANOL BLOOD MEDICAL <3 mg/dL; GLUCOSE RANDOM 91 mg/dL (74-106); POTASSIUM,K 4.3 mmol/L (3.5-5.1); PROTEIN TOTAL,TP 6.9 g/dL (6.4-8.2); SODIUM,NA 140 mmol/L (136-145)
[2024-02-09] MEDS: Ketorolac 30 MG/ML SDV IVPUSH ONE (17:45)
[2024-02-09 18:09] LABS: CORONAVIRUS COVID-19 NAA NEGATIVE (NEGATIVE); INFLUENZA A NAA NEGATIVE (NEGATIVE); INFLUENZA B NAA NEGATIVE (NEGATIVE)
[2024-02-09 18:13] LABS: APPEARANCE,URINE CLOUDY; BILIRUBIN,URINE NEGATIVE (NEGATIVE); COLOR,URINE YELLOW; GLUCOSE,URINE NEGATIVE (NEGATIVE); KETONES,URINE NEGATIVE (NEGATIVE); LEUKOCYTE ESTERASE,URINE NEGATIVE (NEGATIVE); NITRITE,URINE NEGATIVE (NEGATIVE); OCCULT BLOOD,URINE TRACE-INTACT (NEGATIVE); PH,URINE 5.5 (5.0-8.0); PROTEIN,URINE NEGATIVE (NEGATIVE); UROBILINOGEN,URINE 0.2 EU/dL (<2.0)
[2024-02-09 18:15] VITALS: BP 131/51
[2024-02-09 18:25] LABS: AMORPHOUS SEDIMENT,URINE HEAVY (NEGATIVE); AMPHETAMINES SCREEN, URINE NEGATIVE (CUTOFF=500); BACTERIA,URINE 2+ (NEGATIVE); BARBITURATE SCREEN,URINE NEGATIVE (CUTOFF=200); BENZODIAZEPINES SCREEN,URINE NEGATIVE (CUTOFF=150); BUPRENORPHINE SCREEN,URINE NEGATIVE (CUTOFF=10); EPITHELIAL CELLS,URINE RARE (NONE-FEW); METHADONE SCREEN, URINE NEGATIVE (CUTOFF=200); METHAMPHETAMINES SCREEN, URINE NEGATIVE (CUTOFF=500); OXYCODONE SCREEN,URINE NEGATIVE (CUT0FF=100); PCP SCREEN,URINE NEGATIVE (CUTOFF=25); RBC,URINE 0-3 (0-2/HPF); THC SCREEN,URINE 20 NG/ML PRESUMPTIVE POSITIVE (CUTOFF=50); WBC,URINE 0-2 (0-5/HPF)
[2024-02-09 19:06] VITALS: PULSE 74
== END 2024-02-09 19:05 | disposition home or self-care (01) ==
LOC: MW.ED 15:16
DX: R56.9 Unspecified convulsions (principal); E86.0 Dehydration; J40 Bronchitis, not specified as acute or chronic; Z75.8 Other problems related to medical facilities and other health care; Z91.048 Other nonmedicinal substance allergy status; Z88.8 Allergy status to other drugs, medicaments and biological substances; Z91.040 Latex allergy status; Z91.018 Allergy to other foods; Z88.1 Allergy status to other antibiotic agents; Z79.899 Other long term (current) drug therapy; Z86.69 Personal history of other diseases of the nervous system and sense organs
CPT/HCPCS: 0240U; 36415; 80053; 80305; 80307; 81001; 83735; 84703; 85025; 96360; 99284; J3490; J7030

== ENCOUNTER 2024-02-13 14:12 | Emergency (ER) | payer BC, MEDICAID, OTHER ==
[2024-02-13 16:00] VITALS: BP 146/86; PULSE 95
== END 2024-02-13 18:00 | disposition left against medical advice (07) ==
LOC: MW.ED 14:12
DX: Z53.21 Procedure and treatment not carried out due to patient leaving prior to being seen by health care provider (principal)

== ENCOUNTER 2024-07-14 11:47 | Inpatient (IN) | payer BC, MEDICAID ==
[2024-07-14] MEDS: Sodium Chloride 0.9% 1,000 ML IV ONE ×2 (12:31→16:20)
[2024-07-14 12:49] LABS: HEMATOCRIT 44.9 % (37.0-47.0); MEAN CORPUSCULAR HEMOGLOBIN 28.5 pg (28.0-32.0); MEAN CORPUSCULAR HGB CONC 33.4 g/dL (32.0-36.0); MEAN CORPUSCULAR VOLUME 85.2 fL (83.0-99.0); MEAN PLATELET VOLUME 10.2 fL (9.4-12.3); PLATELET COUNT,PLT 262 K/uL (150-400); RED BLOOD CELL COUNT 5.27 M/uL (4.10-5.30); WHITE BLOOD CELL COUNT,WBC 10.29 K/uL (3.9-11.3)
[2024-07-14 12:51] LABS: BASE EXCESS VENOUS 0.2 (-2.0-3.0); PH,VENOUS 7.42 (7.31-7.41)
[2024-07-14 13:15] LABS: A/G RATIO 1.1 (0.9-1.6); ALANINE AMINOTRANSFERASE,ALT 36 IU/L (14-63); ALBUMIN 3.8 g/dL (3.4-5.0); ALKALINE PHOSPHATASE 60 U/L (46-116); ASPARTATE AMNIOTRANSFERASE,AST 14 IU/L (15-37); BILIRUBIN TOTAL 0.7 mg/dL (0.2-1.0); BLOOD UREA NITROGEN,BUN 8 mg/dL (7.0-18.0); CALCIUM 8.6 mg/dL (8.5-10.1); CARBON DIOXIDE,CO2 25.3 mmol/L (21.0-32.0); CHLORIDE,CL 102 mmol/L (98-107); EST CRCL DRUG DOSING (CG) 92.22 mL/min; ESTIMATED GFR 82 mL/min (>60); ETHANOL BLOOD MEDICAL < 3.0 mg/dL; GLUCOSE RANDOM 115 mg/dL (74-106); LIPASE 26 U/L (16-77); POTASSIUM,K 3.6 mmol/L (3.5-5.1); PROTEIN TOTAL,TP 7.2 g/dL (6.4-8.2); SODIUM,NA 138 mmol/L (136-145)
[2024-07-14 13:20] LABS: LACTIC ACID 0.9 mmol/L (0.4-2.0)
[2024-07-14 13:21] LABS: SEG NEUTROPHILS ABSOLUTE MAN 6.59 K/uL (1.80-7.70); SEG NEUTROPHILS PERCENT MAN 64 % (41-71)
[2024-07-14 13:22] LABS: LYMPHOCYTES ABSOLUTE MAN 2.37 K/uL (1.00-4.80); LYMPHOCYTES PERCENT MAN 23 % (24-44); MONOCYTES ABSOLUTE MAN 1.34 K/uL (0.00-0.80); MONOCYTES PERCENT MAN 13 % (0-8)
[2024-07-14 13:26] LABS: CORONAVIRUS COVID-19 NAA NEGATIVE (NEGATIVE); INFLUENZA A NAA NEGATIVE (NEGATIVE); INFLUENZA B NAA NEGATIVE (NEGATIVE)
[2024-07-14] MEDS: Acetaminophen 325 MG Tab PO PRN (20:16)
[2024-07-14] MEDS: LORazepam 2 MG/ML SDV IM ONE (20:39)
[2024-07-14] MEDS: LACOSAMIDE PO SCH (21:08)
[2024-07-14] MEDS: Pregabalin 75 MG Cap PO SCH (21:08)
[2024-07-14 21:21] LABS: GLUCOSE,URINE NEGATIVE (NEGATIVE); KETONES,URINE >=80 mg/dL (NEGATIVE); LEUKOCYTE ESTERASE,URINE NEGATIVE (NEGATIVE); NITRITE,URINE NEGATIVE (NEGATIVE); OCCULT BLOOD,URINE SMALL (NEGATIVE); PROTEIN,URINE NEGATIVE (NEGATIVE); UROBILINOGEN,URINE 0.2 EU/dL (<2.0)
[2024-07-14 21:23] LABS: APPEARANCE,URINE HAZY; BILIRUBIN,URINE SMALL (NEGATIVE); COLOR,URINE DARK YELLOW
[2024-07-14 21:29] LABS: BACTERIA,URINE FEW (NEGATIVE); EPITHELIAL CELLS,URINE OCCASIONAL (NONE-FEW); MUCUS,URINE OCCASIONAL (NONE-MOD); RBC,URINE 0-2 (0-2/HPF); WBC,URINE 0-1 (0-5/HPF)
[2024-07-14 21:31] LABS: AMPHETAMINES SCREEN, URINE NEGATIVE (CUTOFF=500); BARBITURATE SCREEN,URINE NEGATIVE (CUTOFF=200); BENZODIAZEPINES SCREEN,URINE NEGATIVE (CUTOFF=150); BUPRENORPHINE SCREEN,URINE NEGATIVE (CUTOFF=10); METHADONE SCREEN, URINE NEGATIVE (CUTOFF=200); METHAMPHETAMINES SCREEN, URINE NEGATIVE (CUTOFF=500); OXYCODONE SCREEN,URINE NEGATIVE (CUT0FF=100); PCP SCREEN,URINE NEGATIVE (CUTOFF=25); THC SCREEN,URINE 20 NG/ML PRESUMPTIVE POSITIVE (CUTOFF=50)
[2024-07-14] MEDS: Haloperidol Lactate 5 MG/ML SDV IM ONE (21:40)
[2024-07-14] MEDS: cefTRIAXone 1 GM in Sodium Chloride 0.9% 50 ML IV ONE (21:43)
[2024-07-14] MEDS: VANCOmycin 2 GM/400 ML 2 GM in Premix Bag 1 BAG IV ONE (22:14)
[2024-07-14 22:43] VITALS: PULSE 106
[2024-07-15] MEDS: Ampicillin 2 GM in Sodium Chloride 0.9% 100 ML IV SCH (01:20)
[2024-07-15] MEDS: VANCOmycin 2 GM/400 ML 2 GM in Premix Bag 1 BAG IV SCH (05:00)
[2024-07-15 05:59] LABS: HEMOGLOBIN 13.9 g/dL (12.0-16.0); MEAN CORPUSCULAR HEMOGLOBIN 28.4 pg (28.0-32.0); MEAN CORPUSCULAR HGB CONC 33.1 g/dL (32.0-36.0); MEAN CORPUSCULAR VOLUME 85.9 fL (83.0-99.0); MEAN PLATELET VOLUME 10.3 fL (9.4-12.3); PLATELET COUNT,PLT 215 K/uL (150-400); RED BLOOD CELL COUNT 4.89 M/uL (4.10-5.30); WHITE BLOOD CELL COUNT,WBC 13.25 K/uL (3.9-11.3)
[2024-07-15 06:39] LABS: A/G RATIO 1.1 (0.9-1.6); ALBUMIN 3.4 g/dL (3.4-5.0); BILIRUBIN TOTAL 0.7 mg/dL (0.2-1.0); CARBON DIOXIDE,CO2 26.3 mmol/L (21.0-32.0); EST CRCL DRUG DOSING (CG) 82.61 mL/min; POTASSIUM,K 3.6 mmol/L (3.5-5.1); PROTEIN TOTAL,TP 6.5 g/dL (6.4-8.2)
[2024-07-15] MEDS: cefTRIAXone 2 GM in Sodium Chloride 0.9% 50 ML IV SCH (10:02)
[2024-07-15] MEDS: Iopamidol 755 MG/ML 500 ML Multipack Bottle IVPUSH STA (12:37)
[2024-07-15] MEDS ORDERED: Midazolam 1 MG/ML 2 ML SDV ONE (13:14)
[2024-07-15] MEDS ORDERED: propofoL 50 ML ONE (13:14)
[2024-07-15] MEDS ORDERED: Lidocaine 2% 5 ML SDV ONE (13:14)
[2024-07-15] MEDS: Haloperidol Lactate 5 MG/ML SDV IM PRN (13:35)
[2024-07-15] MEDS: LORazepam 2 MG/ML SDV IVPUSH ONE (15:57)
[2024-07-15 17:25] LABS: APPEARANCE CSF CLEAR; COLOR,CSF COLORLESS; MONONUCLEAR, CSF 85.9 %; POLYMORPHONUCLEAR, CSF 14.1 %; RBC,CSF 0 /uL (0-0); WBC,CSF 163 /uL (0-5)
[2024-07-15 17:28] LABS: APPEARANCE CSF CLEAR; COLOR,CSF COLORLESS; MONONUCLEAR, CSF 88.1 %; POLYMORPHONUCLEAR, CSF 11.9 %; RBC,CSF 0 /uL (0-0); WBC,CSF 169 /uL (0-5)
[2024-07-15 22:25] VITALS: BP 132/75
[2024-07-15] MEDS: Acetaminophen 650 MG in Premix Bag 1 BAG IV PRN (22:26)
[2024-07-16 11:03] LABS: BORDETELLA PARAPERT IS1001 Not Detected (Not Detected)
== END 2024-07-15 22:45 | DRG 52 ==
LOC: MW.ED 11:47 → UNDOADMOB 15:52 → MW.MS 15:52 → MW.ICU 23:29 → MW.MS 07-15 16:05 → OBSVTOIN 07-15 16:05 → MW.ICU 07-15 16:06
PROVIDERS: ADMIT Internal Medicine; ATTEND Internal Medicine
PROC: 009U3ZX Drainage of Spinal Canal, Percutaneous Approach, Diagnostic (ICD-10-PCS; principal; 2024-07-15)
DX: G93.40 Encephalopathy, unspecified (principal); D84.821 Immunodeficiency due to drugs; G35 Multiple sclerosis; G40.909 Epilepsy, unspecified, not intractable, without status epilepticus; K21.9 Gastro-esophageal reflux disease without esophagitis; F32.A Depression, unspecified; R23.8 Other skin changes; Z91.048 Other nonmedicinal substance allergy status; Z88.8 Allergy status to other drugs, medicaments and biological substances; Z91.040 Latex allergy status; Z91.018 Allergy to other foods; Z88.2 Allergy status to sulfonamides; Z88.1 Allergy status to other antibiotic agents; Z79.51 Long term (current) use of inhaled steroids; Z79.899 Other long term (current) drug therapy; Z90.89 Acquired absence of other organs; Z98.890 Other specified postprocedural states
CPT/HCPCS: 00635; 0240U; 36410; 36415; 51701; 70450; 70450-26; 71045; 71045-26; 71260; 71260-26; 74177; 74177-26; 80053; 80202; 80305-QW; 80307; 81001; 82140; 82803; 82945; 82947; 83605; 83690; 84145; 84157; 85025; 85027; 85652; 86140; 86788; 87040; 87486; 87581; 87633; 89050; 93005; 96361; 96365; 96366; 96367; 96368; 96372; 96375; 96376; 99223; 99239; 99284; 99285-25; A9270-GY; G0378; J0131; J0133; J0290; J0696; J1630; J1953; J2060; J2250; J2704; J3370; J3372; J3490; J7030; J7050; J7060; Q9967

== ENCOUNTER 2024-09-24 13:15 | Emergency (ER) | payer BC, MEDICAID ==
[2024-09-24 13:36] VITALS: PULSE 88
[2024-09-24 14:13] LABS: APPEARANCE,URINE CLOUDY; BILIRUBIN,URINE MODERATE (NEGATIVE); GLUCOSE,URINE NEGATIVE (NEGATIVE); KETONES,URINE >=80 mg/dL (NEGATIVE); LEUKOCYTE ESTERASE,URINE NEGATIVE (NEGATIVE); NITRITE,URINE NEGATIVE (NEGATIVE); OCCULT BLOOD,URINE MODERATE (NEGATIVE); PH,URINE 5.5 (5.0-8.0); PROTEIN,URINE TRACE mg/dL (NEGATIVE); UROBILINOGEN,URINE 0.2 EU/dL (<2.0)
[2024-09-24 14:26] LABS: BACTERIA,URINE 2+ (NEGATIVE); COLOR,URINE YELLOW; EPITHELIAL CELLS,URINE FEW (NONE-FEW); MUCUS,URINE LIGHT (NONE-MOD); WBC,URINE 0-2 (0-5/HPF)
[2024-09-24] MEDS ORDERED: Sodium Chloride 0.9% 2.5 ML Syringe FLUSH PRN (14:42)
[2024-09-24] MEDS ORDERED: Sodium Chloride 0.9% 10 ML Syringe FLUSH PRN (14:42)
[2024-09-24] MEDS: Sodium Chloride 0.9% 1,000 ML IV ONE (15:15)
[2024-09-24 15:53] LABS: CALCIUM 9.4 mg/dL (8.5-10.1); CARBON DIOXIDE,CO2 26.1 mmol/L (21.0-32.0); CREATININE 0.6 mg/dL (0.6-1.0); EST CRCL DRUG DOSING (CG) 137.68 mL/min
[2024-09-24 16:41] VITALS: BP 139/87
== END 2024-09-24 16:43 | disposition home or self-care (01) ==
LOC: MW.ED 13:15
DX: R30.0 Dysuria (principal); Z88.2 Allergy status to sulfonamides; Z91.018 Allergy to other foods; Z91.048 Other nonmedicinal substance allergy status; Z91.09 Other allergy status, other than to drugs and biological substances; Z88.8 Allergy status to other drugs, medicaments and biological substances; Z75.8 Other problems related to medical facilities and other health care; Z79.899 Other long term (current) drug therapy
CPT/HCPCS: 36415; 80048; 81001; 81025; 87086; 96360; 99284; J7030

== ENCOUNTER 2024-11-18 22:32 | Emergency (ER) | payer BC, MEDICAID ==
[2024-11-18] MEDS: Diphtheria,Pertussis(Acell),Tetanus Vaccine 0.5 ML Syringe IM ONE (22:59)
[2024-11-18] MEDS: Acetaminophen 325 MG Tab PO ONE (23:06)
[2024-11-18] MEDS ORDERED: Naloxone 0.4 MG/ML SDV IVPUSH PRN (23:12)
[2024-11-18] MEDS: fentaNYL 50 MCG/ML SDV IVPUSH ONE ×2 (23:25→23:57)
[2024-11-19 00:14] VITALS: BP 131/77; PULSE 80
== END 2024-11-19 00:14 | disposition home or self-care (01) ==
LOC: MW.ED 22:32
DX: S43.014A Anterior dislocation of right humerus, initial encounter (principal); S43.034A Inferior dislocation of right humerus, initial encounter; Z88.8 Allergy status to other drugs, medicaments and biological substances; Z91.040 Latex allergy status; Z91.048 Other nonmedicinal substance allergy status; Z91.018 Allergy to other foods; Z79.899 Other long term (current) drug therapy; X50.1XXA Overexertion from prolonged static or awkward postures, initial encounter
CPT/HCPCS: 23650; 73030; 96374; 96375; 99283; A9270; J3010; J3360

== ENCOUNTER 2025-02-13 18:00 | Emergency (ER) | payer BC, MEDICAID ==
[2025-02-13] MEDS: Ondansetron 4 MG/2 ML SDV IVPUSH ONE (18:46)
[2025-02-13] MEDS: Morphine 4 MG/ML Syringe IVPUSH STA (18:48)
[2025-02-13] MEDS: Morphine 4 MG/ML Syringe IVPUSH ONE (19:32)
[2025-02-13] MEDS: Etomidate 2 MG/ML 20 ML SDV IVPUSH ONE (20:31)
[2025-02-13 21:07] VITALS: BP 136/61; PULSE 67
== END 2025-02-13 21:04 | disposition home or self-care (01) ==
LOC: MW.ED 18:00
DX: M24.411 Recurrent dislocation, right shoulder (principal); Z75.3 Unavailability and inaccessibility of health-care facilities
CPT/HCPCS: 23650; 73020; 73030; 96374; 96375; 96376; 99284; J2270; J2405; J3490; 99283

== ENCOUNTER 2025-04-05 03:14 | Emergency (ER) | payer BC, MEDICAID ==
[2025-04-05] MEDS: oxyCODONE 5 MG Tab PO ONE (03:48)
[2025-04-05] MEDS: fentaNYL 50 MCG/ML SDV IVPUSH ONE (04:06)
[2025-04-05] MEDS: Midazolam 1 MG/ML 2 ML SDV IVPUSH ONE (04:07)
[2025-04-05 04:53] VITALS: BP 144/79; PULSE 70
== END 2025-04-05 04:52 | disposition home or self-care (01) ==
LOC: MW.ED 03:14
DX: S43.004A Unspecified dislocation of right shoulder joint, initial encounter (principal); Z88.2 Allergy status to sulfonamides; Z91.048 Other nonmedicinal substance allergy status; Z91.040 Latex allergy status; Z91.018 Allergy to other foods; Z88.8 Allergy status to other drugs, medicaments and biological substances; Z79.899 Other long term (current) drug therapy; X58.XXXA Exposure to other specified factors, initial encounter
CPT/HCPCS: 23650; 73020; 73030; 96374; 96375; 99283; A9270; J2250; J3010; 23655; 99284

== ENCOUNTER 2025-04-30 18:46 | Emergency (ER) | payer BC, MEDICAID ==
[2025-04-30 19:10] LABS: BASOPHILS ABSOLUTE AUTO 0.03 K/uL (0.00-0.20); BASOPHILS PERCENT AUTO 0.2 % (0.0-1.0); EOSINOPHILS ABSOLUTE AUTO 0.01 K/uL (0.00-0.45); EOSINOPHILS PERCENT AUTO 0.1 % (0.0-6.0); IMMATURE GRAN ABSOLUTE AUTO 0.04 K/uL (0.00-0.05); IMMATURE GRAN PERCENT AUTO 0.3 % (0.0-0.4); LYMPHOCYTES ABSOLUTE AUTO 2.71 K/uL (1.00-4.80); LYMPHOCYTES PERCENT AUTO 19.4 % (24.0-44.0); MEAN PLATELET VOLUME 10.6 fL (9.4-12.3); MONOCYTES ABSOLUTE AUTO 0.80 K/uL (0.00-0.80); MONOCYTES PERCENT AUTO 5.7 % (0.0-8.0); NEUTROPHILS ABSOLUTE AUTO 10.36 K/uL (1.80-7.70); NEUTROPHILS PERCENT AUTO 74.3 % (41.0-71.0); NRBC ABSOLUTE 0.00 K/uL (0.00-0.02); NRBC PERCENT 0.0 /100WBC (0.0-0.2); PLATELET COUNT,PLT 373 K/uL (150-400); RED BLOOD CELL COUNT 5.38 M/uL (4.10-5.30); WHITE BLOOD CELL COUNT,WBC 13.95 K/uL (3.9-11.3)
[2025-04-30] MEDS: Ondansetron 4 MG/2 ML SDV IVPUSH ONE (19:17)
[2025-04-30 19:51] LABS: APPEARANCE,URINE SLT CLOUDY; GLUCOSE,URINE NEGATIVE (NEGATIVE); OCCULT BLOOD,URINE TRACE-INTACT (NEGATIVE)
[2025-04-30 19:55] LABS: A/G RATIO 1.1 (0.9-1.6); ALANINE AMINOTRANSFERASE,ALT 27 IU/L (14-63); ASPARTATE AMNIOTRANSFERASE,AST 17 IU/L (15-37); BILIRUBIN TOTAL 0.3 mg/dL (0.2-1.0); BLOOD UREA NITROGEN,BUN 15 mg/dL (7.0-18.0); CARBON DIOXIDE,CO2 16.8 mmol/L (21.0-32.0); CHLORIDE,CL 104 mmol/L (98-107); CREATININE 1.3 mg/dL (0.6-1.0); ESTIMATED GFR 59 mL/min (>60); ETHANOL BLOOD MEDICAL <3 mg/dL; GLUCOSE RANDOM 121 mg/dL (74-106); POTASSIUM,K 3.7 mmol/L (3.5-5.1); PROTEIN TOTAL,TP 7.7 g/dL (6.4-8.2); SODIUM,NA 141 mmol/L (136-145)
[2025-04-30 19:55] LABS: AMPHETAMINES SCREEN, URINE NEGATIVE (CUTOFF=500); BUPRENORPHINE SCREEN,URINE NEGATIVE (CUTOFF=10); METHADONE SCREEN, URINE NEGATIVE (CUTOFF=200); METHAMPHETAMINES SCREEN, URINE NEGATIVE (CUTOFF=500); OXYCODONE SCREEN,URINE NEGATIVE (CUT0FF=100); PCP SCREEN,URINE NEGATIVE (CUTOFF=25); THC SCREEN,URINE 20 NG/ML PRESUMPTIVE POSITIVE (CUTOFF=50)
[2025-04-30 20:02] LABS: EPITHELIAL CELLS,URINE FEW (NONE-FEW)
[2025-04-30 20:03] VITALS: BP 98/53; PULSE 87
== END 2025-04-30 20:12 | disposition home or self-care (01) ==
LOC: MW.ED 18:46
DX: G40.909 Epilepsy, unspecified, not intractable, without status epilepticus (principal); E86.0 Dehydration; F12.90 Cannabis use, unspecified, uncomplicated; R79.89 Other specified abnormal findings of blood chemistry; Z91.048 Other nonmedicinal substance allergy status; Z88.8 Allergy status to other drugs, medicaments and biological substances; Z91.040 Latex allergy status; Z91.018 Allergy to other foods; Z79.899 Other long term (current) drug therapy
CPT/HCPCS: 36415; 80053; 80143; 80179; 80305; 80307; 81001; 82947; 83605; 83735; 84703; 85025; 96361; 96374; 99284; J2405; J7030; 99283

== ENCOUNTER 2025-05-22 16:30 | Emergency (ER) | payer MEDICAID ==
[2025-05-22] MEDS ORDERED: Ondansetron 4 MG/2 ML SDV IVPUSH ONE (17:05)
[2025-05-22] MEDS ORDERED: Midazolam 1 MG/ML 2 ML SDV IVPUSH ONE (17:06)
[2025-05-22] MEDS: Ondansetron 4 MG/2 ML SDV IVPUSH ONE (17:18)
[2025-05-22] MEDS: fentaNYL 50 MCG/ML SDV IVPUSH ONE (17:21)
[2025-05-22] MEDS: Midazolam 5 MG/ML SDV IVPUSH ONE (17:24)
[2025-05-22] MEDS: Ketorolac 30 MG/ML SDV IVPUSH ONE (17:57)
[2025-05-22 18:21] VITALS: BP 122/65; PULSE 80
== END 2025-05-22 18:30 | disposition home or self-care (01) ==
LOC: MW.ED 16:30
DX: M24.411 Recurrent dislocation, right shoulder (principal); Z88.8 Allergy status to other drugs, medicaments and biological substances; Z91.018 Allergy to other foods; Z91.048 Other nonmedicinal substance allergy status; Z79.899 Other long term (current) drug therapy
CPT/HCPCS: 23650; 73030-26-RT; 73030-RT; 96374; 96375; 99283-25; A9270-GY; J1885; J2250; J2405; J3010

== ENCOUNTER 2025-09-17 23:26 | Emergency (ER) | payer BC, MEDICAID ==
[2025-09-18 01:09] VITALS: BP 118/64; PULSE 93
== END 2025-09-18 01:01 | disposition home or self-care (01) ==
LOC: MW.ED 23:26
DX: T78.40XA Allergy, unspecified, initial encounter (principal); Z79.899 Other long term (current) drug therapy; Z88.8 Allergy status to other drugs, medicaments and biological substances; Z91.040 Latex allergy status; Z91.048 Other nonmedicinal substance allergy status; Z91.018 Allergy to other foods; Z88.2 Allergy status to sulfonamides
CPT/HCPCS: 99283; A9270